=== PATIENT | male | born 1980 | race Caucasian/White ===

== ENCOUNTER 2020-06-07 20:33 | Emergency (ER) | payer OTHER ==
[~2020-06-07] VITALS: Ht 170.2 cm; Wt 111.3 kg
[2020-06-07 20:38] VITALS: BP 138/98
--- NOTE | 2020-06-07 20:40 | NUR ---
PT TAKEN TO BED 4
--- NOTE | 2020-06-07 20:54 | NUR ---
PT BIB SELF C/O BRIGHT RED BLOOD IN STOOL X1 DAY. PT DENIES PAIN, N/V/D, WEAKNESS, CP, OR SOB. PT REPORTS HE HAD SAME SYMPTOMS A COUPLE MONTHS AGO BUT SYMPTOMS RESOLVED ON THERE OWN.
--- NOTE | 2020-06-07 21:00 | NUR ---
PT TAKEN TO CT
--- NOTE | 2020-06-07 21:15 | NUR ---
Dr. Multani examining patient.
[2020-06-07 21:45] LABS: BASOPHILS # (AUTO) 0.1 K/uL (0.00-0.22); BASOPHILS % (AUTO) 1.1 % (0.0-2.0); EOSINOPHILS # (AUTO) 0.3 K/uL (0-0.4); EOSINOPHILS % (AUTO) 2.6 % (0.0-4.0); HEMATOCRIT 42.5 % (36-52); HEMOGLOBIN 14.5 g/dL (12.0-18.0); LYMPHOCYTES # (AUTO) 4.6 K/uL (2.0-11.5); LYMPHOCYTES % (AUTO) 43.3 % (20.5-51.1); MEAN CORPUSCULAR HEMOGLOBIN 32 pg (27-31); MEAN CORPUSCULAR HGB CONC 34 g/dL (33-37); MEAN CORPUSCULAR VOLUME 92.6 fL (80-94); MONOCYTES # (AUTO) 0.6 K/uL (0.8-1.0); MONOCYTES % (AUTO) 6.1 % (1.7-9.3); NEUTROPHILS # (AUTO) 4.9 K/uL (1.8-7.7); NEUTROPHILS % (AUTO) 46.9 % (42.2-75.2); PLATELET COUNT (AUTO) 177 K/uL (140-450); RED BLOOD CELL COUNT(AUTO) 4.59 MIL/uL (4.20-6.10); RED CELL DISTRIBUTION WIDTH 13.4 % (11.6-13.7); WHITE BLOOD COUNT (AUTO) 10.5 K/uL (4.8-10.8)
[2020-06-07 21:58] LABS: PROTHROMBIN TIME 11.8 secs (10.8-13.4)
[2020-06-07 21:59] LABS: ALBUMIN 3.4 g/dL (3.4-5.0); ANION GAP 12.5 (8-16); CREATININE 1.1 mg/dL (0.6-1.3); POTASSIUM 3.5 mmol/L (3.5-5.1); TOTAL BILIRUBIN 0.3 mg/dL (0.0-1.0)
[2020-06-07 22:15] VITALS: BP 119/70
--- NOTE | 2020-06-07 22:16 | NUR ---
Patient discharged with v/s stable. Written and verbal after care instructions given and explained. Patient verbalized understanding. Ambulatory with steady gait. All questions addressed prior to discharge. Advised to follow up with PMD.
== END 2020-06-07 22:16 | disposition home or self-care (01) ==
LOC: MED 20:33
DX: K62.5 Hemorrhage of anus and rectum (principal); R03.0 Elevated blood-pressure reading, without diagnosis of hypertension; F17.210 Nicotine dependence, cigarettes, uncomplicated; Z71.6 Tobacco abuse counseling
CPT/HCPCS: 36415; 80053; 85025; 85610; 85730; 99284